=== PATIENT | female | born 1955 | race African-American/Black ===

== ENCOUNTER 2016-10-04 11:34 | Inpatient (IN) | payer MEDICARE, MEDICAID ==
[~2016-10-04] VITALS: Ht 165.1 cm; Wt 66.5 kg
[2016-10-04] MEDS ORDERED: DUONEB INH ONE ×2 (12:01→12:40)
[2016-10-04] MEDS ORDERED: SODIUM CHLORIDE 0.9% 1,000 ML ONE (13:25)
[2016-10-04] MEDS ORDERED: DEXTROSE 50% SYRINGE 50 ML IV PRN (13:30)
[2016-10-04] MEDS ORDERED: INSULIN DRIP 1 UNIT/ML 100 ML IV SCH (13:30)
[2016-10-04] MEDS ORDERED: MAG HYDROX 30 ML UDC PO PRN (15:55)
[2016-10-04] MEDS ORDERED: ACETAMINOPHEN 325 MG TAB PO PRN (15:55)
[2016-10-04] MEDS ORDERED: SALINE FLUSH 10 ML FLUSH PRN (15:55)
[2016-10-04] MEDS ORDERED: BISACODYL EC 5 MG TAB PO PRN (15:55)
[2016-10-04] MEDS ORDERED: BISACODYL 10 MG SUPP RECTAL PRN (15:55)
[2016-10-04] MEDS ORDERED: ALU/MAG/SIM 30 ML UDC PO PRN (15:55)
[2016-10-04] MEDS ORDERED: BACLOFEN 10 MG TAB PO PRN (15:55)
[2016-10-04] MEDS ORDERED: MORPHINE 2 MG/ML SYR IV PRN (15:55)
[2016-10-04] MEDS ORDERED: **NOTE TO NURSE XX SCH ×2 (18:00→19:10)
[2016-10-04 18:01] VITALS: RESP 32
[2016-10-04] MEDS: DUONEB INH SCH ×2 (18:01→22:58)
[2016-10-04 18:03] VITALS: RESP 32
[2016-10-04 18:04] VITALS: Ht 165.1 cm; Wt 66.5 kg
[2016-10-04 18:05] VITALS: BP_SYST 110; RESP 20; TEMP 98
[2016-10-04 19:00] VITALS: BP_SYST 108; RESP 22; TEMP 98
[2016-10-04] MEDS ORDERED: VANCOMYCIN 1,250 MG in SODIUM CHLORIDE 0.9% 250 ML IV SCH (19:00)
[2016-10-04] MEDS: **NOTE TO NURSE XX SCH (19:10)
[2016-10-04] MEDS: SODIUM CHLORIDE 0.9% 1,000 ML IV SCH (19:21)
[2016-10-04 19:30] VITALS: RESP 38
[2016-10-04] MEDS: SALINE FLUSH 10 ML FLUSH SCH (20:00)
[2016-10-04] MEDS: DARUNAVIR ETHANOLATE 800 MG PO SCH (20:09)
[2016-10-04] MEDS: NON-FORMULARY MEDICATION (Ritonavir (Norvir) 100 MG) PO SCH (20:10)
[2016-10-04] MEDS: NYSTATIN 500,000 UNITS/5 ML SUSP SWISH.SWAL SCH ×2 (20:40→21:00)
[2016-10-04] MEDS: MONTELUKAST 10 MG TAB PO SCH (20:40)
[2016-10-04] MEDS: CITALOPRAM 20 MG TAB PO SCH (20:41)
[2016-10-04] MEDS: BUPROPION HCL 75 MG TAB PO SCH (20:43)
[2016-10-04] MEDS: BUSPIRONE HCL 5 MG TAB PO SCH (20:43)
[2016-10-04] MEDS: LEVEMIR INSULIN SUBQ SCH (21:25)
[2016-10-04 23:00] VITALS: BP_SYST 98; RESP 18; TEMP 98.3
[2016-10-05] VITALS (13 sets, daily range): BP systolic 92–111; RESP 18–28; TEMP 97.4–98.1
[2016-10-05] MEDS: DUONEB INH SCH ×6 (02:32→22:12)
[2016-10-05] MEDS: SODIUM CHLORIDE 0.9% FLUSH BAG 500 ML IV SCH (05:10)
[2016-10-05] MEDS: **NOTE TO NURSE XX SCH ×2 (07:10→19:10)
[2016-10-05] MEDS: SALINE FLUSH 10 ML FLUSH SCH ×2 (08:00→20:00)
[2016-10-05] MEDS: NYSTATIN 500,000 UNITS/5 ML SUSP SWISH.SWAL SCH ×4 (08:53→20:03)
[2016-10-05] MEDS: MONTELUKAST 10 MG TAB PO SCH (08:53)
[2016-10-05] MEDS: BUSPIRONE HCL 5 MG TAB PO SCH ×2 (08:53→19:57)
[2016-10-05] MEDS: DARUNAVIR ETHANOLATE 800 MG PO SCH (08:54)
[2016-10-05] MEDS: NON-FORMULARY MEDICATION (Ritonavir (Norvir) 100 MG) PO SCH (08:54)
[2016-10-05] MEDS: CITALOPRAM 20 MG TAB PO SCH (08:54)
[2016-10-05] MEDS: BUPROPION HCL 75 MG TAB PO SCH ×2 (08:54→19:55)
[2016-10-05] MEDS ORDERED: ENOXAPARIN 40 MG/0.4 ML SYR SUBQ SCH (09:00)
[2016-10-05] MEDS ORDERED: CARDIZEM 1 MG/ML DRIP 125 ML IV SCH (09:10)
[2016-10-05] MEDS: ENOXAPARIN 60 MG/0.6 ML SYR SUBQ SCH (10:00)
[2016-10-05] MEDS: Carvedilol 3.125 MG TAB PO SCH (11:45)
[2016-10-05] MEDS: VANCOMYCIN 1,250 MG in SODIUM CHLORIDE 0.9% 250 ML IV SCH (12:54)
[2016-10-05] MEDS: SODIUM CHLORIDE 0.9% 1,000 ML IV SCH (16:24)
[2016-10-06] VITALS (8 sets, daily range): BP systolic 88–107; RESP 16–27; TEMP 97.7–98.4
[2016-10-06] MEDS: LEVEMIR INSULIN SUBQ SCH ×2 (00:31→20:41)
[2016-10-06] MEDS: ENOXAPARIN 60 MG/0.6 ML SYR SUBQ SCH ×3 (00:32→20:42)
[2016-10-06] MEDS: Carvedilol 3.125 MG TAB PO SCH ×3 (00:33→20:43)
[2016-10-06] MEDS: VANCOMYCIN 1,250 MG in SODIUM CHLORIDE 0.9% 250 ML IV SCH ×3 (00:33→22:37)
[2016-10-06] MEDS: DUONEB INH SCH ×6 (02:46→22:48)
[2016-10-06] MEDS: SODIUM CHLORIDE 0.9% 1,000 ML IV SCH ×2 (05:26→22:36)
[2016-10-06] MEDS: SODIUM CHLORIDE 0.9% FLUSH BAG 500 ML IV SCH (05:26)
[2016-10-06] MEDS: **NOTE TO NURSE XX SCH ×2 (07:10→19:10)
[2016-10-06] MEDS: SALINE FLUSH 10 ML FLUSH SCH ×2 (08:00→20:00)
[2016-10-06] MEDS: MONTELUKAST 10 MG TAB PO SCH (08:15)
[2016-10-06] MEDS: BUPROPION HCL 75 MG TAB PO SCH ×2 (08:15→20:43)
[2016-10-06] MEDS: DARUNAVIR ETHANOLATE 800 MG PO SCH (08:16)
[2016-10-06] MEDS: CITALOPRAM 20 MG TAB PO SCH (08:16)
[2016-10-06] MEDS: BUSPIRONE HCL 5 MG TAB PO SCH ×2 (08:16→20:43)
[2016-10-06] MEDS: NYSTATIN 500,000 UNITS/5 ML SUSP SWISH.SWAL SCH ×4 (08:17→20:43)
[2016-10-06] MEDS: NON-FORMULARY MEDICATION (Ritonavir (Norvir) 100 MG) PO SCH (08:17)
[2016-10-06] MEDS: FAMOTIDINE 20 MG TAB PO SCH (20:42)
[2016-10-07] MEDS: DUONEB INH SCH ×6 (02:52→22:53)
[2016-10-07 02:55] VITALS: BP_SYST 105; RESP 18; TEMP 98.3
[2016-10-07] MEDS: SODIUM CHLORIDE 0.9% FLUSH BAG 500 ML IV SCH ×2 (05:27→11:51)
[2016-10-07] MEDS: **NOTE TO NURSE XX SCH (07:10)
[2016-10-07] MEDS: SALINE FLUSH 10 ML FLUSH SCH ×2 (08:00→20:00)
[2016-10-07 08:14] VITALS: BP_SYST 102; RESP 18; TEMP 98.2
[2016-10-07] MEDS: NON-FORMULARY MEDICATION (Ritonavir (Norvir) 100 MG) PO SCH (09:22)
[2016-10-07] MEDS: DARUNAVIR ETHANOLATE 800 MG PO SCH (09:23)
[2016-10-07] MEDS: Carvedilol 3.125 MG TAB PO SCH ×2 (09:23→21:10)
[2016-10-07] MEDS: MONTELUKAST 10 MG TAB PO SCH (09:23)
[2016-10-07] MEDS: NYSTATIN 500,000 UNITS/5 ML SUSP SWISH.SWAL SCH ×4 (09:23→21:09)
[2016-10-07] MEDS: BUSPIRONE HCL 5 MG TAB PO SCH ×2 (09:23→21:11)
[2016-10-07] MEDS: BUPROPION HCL 75 MG TAB PO SCH ×2 (09:23→21:10)
[2016-10-07] MEDS: CITALOPRAM 20 MG TAB PO SCH (09:23)
[2016-10-07] MEDS: ENOXAPARIN 60 MG/0.6 ML SYR SUBQ SCH (09:25)
[2016-10-07] MEDS: SODIUM CHLORIDE 0.9% 1,000 ML IV SCH (11:45)
[2016-10-07] MEDS: VANCOMYCIN 1,250 MG in SODIUM CHLORIDE 0.9% 250 ML IV SCH (11:45)
[2016-10-07] MEDS ORDERED: CARDIZEM 1 MG/ML DRIP 125 ML IV PRN (11:50)
[2016-10-07 12:04] VITALS: BP_SYST 104; RESP 18; TEMP 98.1
[2016-10-07 15:00] VITALS: BP_SYST 108; RESP 18; TEMP 98
[2016-10-07 19:27] VITALS: BP_SYST 101; RESP 18; TEMP 98.5
[2016-10-07] MEDS: FAMOTIDINE 20 MG TAB PO SCH (21:10)
[2016-10-07] MEDS: APIXABAN 5 MG TAB PO SCH (21:10)
[2016-10-07] MEDS: LEVEMIR INSULIN SUBQ SCH (21:12)
[2016-10-07 23:29] VITALS: BP_SYST 103; RESP 18; TEMP 98.1
[2016-10-08] MEDS: DUONEB INH SCH ×6 (02:36→22:45)
[2016-10-08] MEDS: SODIUM CHLORIDE 0.9% FLUSH BAG 500 ML IV SCH ×2 (03:23→08:50)
[2016-10-08 03:41] VITALS: BP_SYST 106; RESP 18; TEMP 98.4
[2016-10-08 07:46] VITALS: BP_SYST 103; RESP 20; TEMP 98.3
[2016-10-08] MEDS: SALINE FLUSH 10 ML FLUSH SCH ×2 (08:00→19:59)
[2016-10-08] MEDS: NYSTATIN 500,000 UNITS/5 ML SUSP SWISH.SWAL SCH ×4 (08:46→20:03)
[2016-10-08] MEDS: MONTELUKAST 10 MG TAB PO SCH (08:46)
[2016-10-08] MEDS: APIXABAN 5 MG TAB PO SCH ×2 (08:46→20:00)
[2016-10-08] MEDS: BUPROPION HCL 75 MG TAB PO SCH ×2 (08:47→20:00)
[2016-10-08] MEDS: Carvedilol 3.125 MG TAB PO SCH ×2 (08:47→20:00)
[2016-10-08] MEDS: BUSPIRONE HCL 5 MG TAB PO SCH ×2 (08:47→20:00)
[2016-10-08] MEDS: CITALOPRAM 20 MG TAB PO SCH (08:47)
[2016-10-08] MEDS: NON-FORMULARY MEDICATION (Ritonavir (Norvir) 100 MG) PO SCH (08:47)
[2016-10-08] MEDS: DARUNAVIR ETHANOLATE 800 MG PO SCH (08:47)
[2016-10-08 12:44] VITALS: BP_SYST 88; RESP 16; TEMP 98.5
[2016-10-08 16:45] VITALS: BP_SYST 101; RESP 17; TEMP 98.3
[2016-10-08 19:25] VITALS: BP_SYST 111; RESP 18; TEMP 98.3
[2016-10-08] MEDS: FAMOTIDINE 20 MG TAB PO SCH (20:00)
[2016-10-08] MEDS: LEVEMIR INSULIN SUBQ SCH (20:01)
[2016-10-08 23:17] VITALS: BP_SYST 106; RESP 18; TEMP 98.4
[2016-10-09 03:00] VITALS: BP_SYST 136; RESP 18; TEMP 98.2
[2016-10-09] MEDS: DUONEB INH SCH ×6 (03:00→22:55)
[2016-10-09] MEDS: SODIUM CHLORIDE 0.9% FLUSH BAG 500 ML IV SCH ×3 (04:00→22:37)
[2016-10-09 08:04] VITALS: BP_SYST 110; RESP 20; TEMP 98.6
[2016-10-09] MEDS: SALINE FLUSH 10 ML FLUSH SCH ×2 (09:50→20:20)
[2016-10-09] MEDS: DARUNAVIR ETHANOLATE 800 MG PO SCH (09:50)
[2016-10-09] MEDS: CITALOPRAM 20 MG TAB PO SCH (09:51)
[2016-10-09] MEDS: NYSTATIN 500,000 UNITS/5 ML SUSP SWISH.SWAL SCH ×4 (09:51→20:20)
[2016-10-09] MEDS: MONTELUKAST 10 MG TAB PO SCH (09:51)
[2016-10-09] MEDS: BUPROPION HCL 75 MG TAB PO SCH ×2 (09:51→20:20)
[2016-10-09] MEDS: NON-FORMULARY MEDICATION (Ritonavir (Norvir) 100 MG) PO SCH (09:51)
[2016-10-09] MEDS: APIXABAN 5 MG TAB PO SCH ×2 (09:51→20:21)
[2016-10-09] MEDS: Carvedilol 3.125 MG TAB PO SCH ×2 (09:51→20:21)
[2016-10-09] MEDS: BUSPIRONE HCL 5 MG TAB PO SCH ×2 (09:51→20:20)
[2016-10-09 11:32] VITALS: BP_SYST 118; RESP 20; TEMP 98.9
[2016-10-09] MEDS: SITAGLIPTIN 50 MG TAB PO SCH (13:37)
[2016-10-09 15:35] VITALS: BP_SYST 98; RESP 16; TEMP 97.8
[2016-10-09 19:35] VITALS: BP_SYST 117; RESP 18; TEMP 98.3
[2016-10-09] MEDS: FAMOTIDINE 20 MG TAB PO SCH (20:20)
[2016-10-09] MEDS: LEVEMIR INSULIN SUBQ SCH (20:22)
[2016-10-09 23:56] VITALS: BP_SYST 107; BP_SYST 96; RESP 20; TEMP 98; TEMP 98.2
[2016-10-10] MEDS: DUONEB INH SCH ×6 (02:19→22:26)
[2016-10-10 03:50] VITALS: BP_SYST 118; RESP 18; TEMP 98.2
[2016-10-10] MEDS: SODIUM CHLORIDE 0.9% FLUSH BAG 500 ML IV SCH (05:45)
[2016-10-10 08:02] VITALS: BP_SYST 105; RESP 18; TEMP 97.8
[2016-10-10] MEDS: SALINE FLUSH 10 ML FLUSH SCH (09:12)
[2016-10-10] MEDS: APIXABAN 5 MG TAB PO SCH ×2 (09:13→21:51)
[2016-10-10] MEDS: NYSTATIN 500,000 UNITS/5 ML SUSP SWISH.SWAL SCH ×4 (09:13→21:51)
[2016-10-10] MEDS: BUPROPION HCL 75 MG TAB PO SCH ×2 (09:13→21:51)
[2016-10-10] MEDS: SITAGLIPTIN 50 MG TAB PO SCH (09:13)
[2016-10-10] MEDS: Carvedilol 3.125 MG TAB PO SCH ×2 (09:13→21:50)
[2016-10-10] MEDS: CITALOPRAM 20 MG TAB PO SCH (09:13)
[2016-10-10] MEDS: NON-FORMULARY MEDICATION (Ritonavir (Norvir) 100 MG) PO SCH (09:14)
[2016-10-10] MEDS: DARUNAVIR ETHANOLATE 800 MG PO SCH (09:14)
[2016-10-10] MEDS: BUSPIRONE HCL 5 MG TAB PO SCH ×2 (09:14→21:50)
[2016-10-10] MEDS: MONTELUKAST 10 MG TAB PO SCH (09:14)
[2016-10-10] MEDS ORDERED: DUONEB INH SCH (12:00)
[2016-10-10 12:03] VITALS: BP_SYST 105; RESP 18; TEMP 97.7
[2016-10-10] MEDS: GLIMEPIRIDE 2 MG TAB PO SCH (12:45)
[2016-10-10] MEDS: SACCHA BOULARDII 250MG CAP PO SCH ×2 (12:46→21:50)
[2016-10-10] MEDS ORDERED: MISSING DOSE XX ONE (13:15)
[2016-10-10 15:38] VITALS: BP_SYST 105; RESP 18; TEMP 98.5
[2016-10-10 18:58] VITALS: BP_SYST 106; RESP 20; TEMP 97.4
[2016-10-10] MEDS ORDERED: LEVEMIR INSULIN SUBQ SCH (21:00)
[2016-10-10] MEDS: FAMOTIDINE 20 MG TAB PO SCH (21:51)
[2016-10-10 23:00] VITALS: BP_SYST 106; RESP 16; TEMP 97.6
[2016-10-11] MEDS: SALINE FLUSH 10 ML FLUSH SCH ×3 (00:50→20:56)
[2016-10-11 03:00] VITALS: BP_SYST 112; RESP 16; TEMP 97.4
[2016-10-11] MEDS: SODIUM CHLORIDE 0.9% FLUSH BAG 500 ML IV SCH ×3 (05:57→21:46)
[2016-10-11] MEDS: DUONEB INH SCH ×5 (06:21→22:41)
[2016-10-11 07:32] VITALS: BP_SYST 110; RESP 18; TEMP 97.8
[2016-10-11] MEDS: MONTELUKAST 10 MG TAB PO SCH (08:16)
[2016-10-11] MEDS: APIXABAN 5 MG TAB PO SCH ×2 (08:16→20:54)
[2016-10-11] MEDS: DARUNAVIR ETHANOLATE 800 MG PO SCH (08:16)
[2016-10-11] MEDS: NON-FORMULARY MEDICATION (Ritonavir (Norvir) 100 MG) PO SCH (08:16)
[2016-10-11] MEDS: SITAGLIPTIN 50 MG TAB PO SCH (08:17)
[2016-10-11] MEDS: SACCHA BOULARDII 250MG CAP PO SCH ×2 (08:17→20:54)
[2016-10-11] MEDS: Carvedilol 3.125 MG TAB PO SCH ×2 (08:17→20:54)
[2016-10-11] MEDS: NYSTATIN 500,000 UNITS/5 ML SUSP SWISH.SWAL SCH ×3 (08:17→17:13)
[2016-10-11] MEDS: BUPROPION HCL 75 MG TAB PO SCH ×2 (08:17→20:54)
[2016-10-11] MEDS: GLIMEPIRIDE 2 MG TAB PO SCH (08:18)
[2016-10-11] MEDS: CITALOPRAM 20 MG TAB PO SCH (08:18)
[2016-10-11] MEDS: BUSPIRONE HCL 5 MG TAB PO SCH ×2 (08:18→20:54)
[2016-10-11 11:00] VITALS: BP_SYST 96; RESP 18; TEMP 97.7
[2016-10-11 15:03] VITALS: BP_SYST 98; RESP 16; TEMP 98.2
[2016-10-11 19:17] VITALS: BP_SYST 109; RESP 18; TEMP 98.1
[2016-10-11] MEDS: FAMOTIDINE 20 MG TAB PO SCH (20:54)
[2016-10-11] MEDS ORDERED: LEVEMIR INSULIN SUBQ SCH (21:00)
[2016-10-11 22:35] VITALS: BP_SYST 120; RESP 20; TEMP 98.2
[2016-10-12] VITALS (7 sets, daily range): BP systolic 94–115; RESP 18–20; TEMP 97.3–98.9
[2016-10-12] MEDS: SODIUM CHLORIDE 0.9% FLUSH BAG 500 ML IV SCH ×2 (05:36→22:15)
[2016-10-12] MEDS: DUONEB INH SCH ×5 (07:29→22:28)
[2016-10-12] MEDS: SALINE FLUSH 10 ML FLUSH SCH ×2 (09:01→20:10)
[2016-10-12] MEDS: BUPROPION HCL 75 MG TAB PO SCH ×2 (09:02→20:08)
[2016-10-12] MEDS: Carvedilol 3.125 MG TAB PO SCH ×2 (09:02→20:08)
[2016-10-12] MEDS: CITALOPRAM 20 MG TAB PO SCH (09:02)
[2016-10-12] MEDS: MONTELUKAST 10 MG TAB PO SCH (09:02)
[2016-10-12] MEDS: BUSPIRONE HCL 5 MG TAB PO SCH ×2 (09:02→20:08)
[2016-10-12] MEDS: APIXABAN 5 MG TAB PO SCH ×2 (09:02→20:08)
[2016-10-12] MEDS: SACCHA BOULARDII 250MG CAP PO SCH ×2 (09:02→20:08)
[2016-10-12] MEDS: DARUNAVIR ETHANOLATE 800 MG PO SCH (09:03)
[2016-10-12] MEDS: GLIMEPIRIDE 2 MG TAB PO SCH (09:03)
[2016-10-12] MEDS: NON-FORMULARY MEDICATION (Ritonavir (Norvir) 100 MG) PO SCH (09:03)
[2016-10-12] MEDS: SITAGLIPTIN 50 MG TAB PO SCH (09:03)
[2016-10-12] MEDS: FAMOTIDINE 20 MG TAB PO SCH (20:08)
[2016-10-12] MEDS: LEVEMIR INSULIN SUBQ SCH (20:10)
[2016-10-13 02:26] VITALS: BP_SYST 108; RESP 20; TEMP 98.2
[2016-10-13] MEDS: SODIUM CHLORIDE 0.9% FLUSH BAG 500 ML IV SCH ×3 (05:21→23:27)
[2016-10-13] MEDS: DUONEB INH SCH ×5 (07:06→22:50)
[2016-10-13 07:24] VITALS: BP_SYST 111; RESP 16; TEMP 98.5
[2016-10-13] MEDS: SALINE FLUSH 10 ML FLUSH SCH ×2 (08:08→20:11)
[2016-10-13] MEDS: NON-FORMULARY MEDICATION (Ritonavir (Norvir) 100 MG) PO SCH (08:09)
[2016-10-13] MEDS: DARUNAVIR ETHANOLATE 800 MG PO SCH (08:09)
[2016-10-13] MEDS: APIXABAN 5 MG TAB PO SCH ×2 (08:10→20:11)
[2016-10-13] MEDS: MONTELUKAST 10 MG TAB PO SCH (08:10)
[2016-10-13] MEDS: Carvedilol 3.125 MG TAB PO SCH ×2 (08:10→20:11)
[2016-10-13] MEDS: SACCHA BOULARDII 250MG CAP PO SCH ×2 (08:10→20:10)
[2016-10-13] MEDS: CITALOPRAM 20 MG TAB PO SCH (08:10)
[2016-10-13] MEDS: BUSPIRONE HCL 5 MG TAB PO SCH ×2 (08:11→20:11)
[2016-10-13] MEDS: BUPROPION HCL 75 MG TAB PO SCH ×2 (08:11→20:11)
[2016-10-13] MEDS: GLIMEPIRIDE 2 MG TAB PO SCH (08:11)
[2016-10-13] MEDS: SITAGLIPTIN 50 MG TAB PO SCH (08:11)
[2016-10-13 11:22] VITALS: BP_SYST 94; RESP 18; TEMP 98.3
[2016-10-13 15:52] VITALS: BP_SYST 95; RESP 16; TEMP 97.9
[2016-10-13 19:47] VITALS: BP_SYST 104; RESP 22; TEMP 98.7
[2016-10-13] MEDS: FAMOTIDINE 20 MG TAB PO SCH (20:10)
[2016-10-13] MEDS: LEVEMIR INSULIN SUBQ SCH (20:30)
[2016-10-13 22:52] VITALS: BP_SYST 110; RESP 18; TEMP 98.3
[2016-10-14] VITALS (7 sets, daily range): BP systolic 101–121; RESP 16–24; TEMP 97.3–97.9
[2016-10-14] MEDS: DUONEB INH SCH ×3 (06:30→14:39)
[2016-10-14] MEDS: SALINE FLUSH 10 ML FLUSH SCH (09:10)
[2016-10-14] MEDS: CITALOPRAM 20 MG TAB PO SCH (09:13)
[2016-10-14] MEDS: APIXABAN 5 MG TAB PO SCH (09:13)
[2016-10-14] MEDS: BUPROPION HCL 75 MG TAB PO SCH (09:13)
[2016-10-14] MEDS: Carvedilol 3.125 MG TAB PO SCH (09:13)
[2016-10-14] MEDS: MONTELUKAST 10 MG TAB PO SCH (09:14)
[2016-10-14] MEDS: SACCHA BOULARDII 250MG CAP PO SCH (09:14)
[2016-10-14] MEDS: SITAGLIPTIN 50 MG TAB PO SCH (09:14)
[2016-10-14] MEDS: GLIMEPIRIDE 2 MG TAB PO SCH (09:15)
[2016-10-14] MEDS: BUSPIRONE HCL 5 MG TAB PO SCH (09:16)
[2016-10-14] MEDS: DARUNAVIR ETHANOLATE 800 MG PO SCH ×2 (09:16→15:20)
[2016-10-14] MEDS: NON-FORMULARY MEDICATION (Ritonavir (Norvir) 100 MG) PO SCH ×2 (09:16→15:19)
== END 2016-10-14 15:44 | disposition home health service (06) | DRG 974 ==
LOC: ENRESERVDT → ENRESERVTM → ER 11:34 → EMR 15:54 → ENPENDDIS 15:54 → DELPENDDIS 15:54 → PCU 17:43 → 3NT 10-10 18:52
PROVIDERS: ADMIT Internal Medicine; ATTEND Internal Medicine
DX: B20 Human immunodeficiency virus [HIV] disease (principal); A41.52 Sepsis due to Pseudomonas; J96.21 Acute and chronic respiratory failure with hypoxia; I13.0 Hypertensive heart and chronic kidney disease with heart failure and stage 1 through stage 4 chronic kidney disease, or unspecified chronic kidney disease; R65.20 Severe sepsis without septic shock; I50.32 Chronic diastolic (congestive) heart failure; J15.4 Pneumonia due to other streptococci; Z99.81 Dependence on supplemental oxygen; E87.1 Hypo-osmolality and hyponatremia; J44.1 Chronic obstructive pulmonary disease with (acute) exacerbation; J44.0 Chronic obstructive pulmonary disease with (acute) lower respiratory infection; N18.9 Chronic kidney disease, unspecified; F17.210 Nicotine dependence, cigarettes, uncomplicated; E21.0 Primary hyperparathyroidism; I48.0 Paroxysmal atrial fibrillation; Z79.01 Long term (current) use of anticoagulants
CPT/HCPCS: 36415; 36569; 36600; 71010; 76937; 78070; 80048; 80053; 80202; 81001; 82306; 82310; 82553; 82803; 82947; 83036; 83605; 83880; 83970; 84439; 84443; 84484; 85007; 85025; 85027; 87040; 87077; 87186; 87804; 93005; 94640; 94660; 94762; 94799; 96361; 96365; 96366; 99232; 99233; 99239; 99291